=== PATIENT | female | born 1995 | race Caucasian/White ===

== ENCOUNTER 2017-11-25 11:11 | Outpatient (CLI) | payer MEDICAID ==
[~2017-11-25 11:11] MED LIST: ALBU6.7H INH; DOCU-28 PO; GUAI120015 PO; ONDA8TAB13 PO; PANT-47 PO
== END 2017-11-25 23:59 | disposition home or self-care (01) ==
LOC: LAB 11:11
PROVIDERS: ATTEND Nurse Practitioner
DX: Z33.2 Encounter for elective termination of pregnancy (principal); F17.200 Nicotine dependence, unspecified, uncomplicated
CPT/HCPCS: 36415; 84702